=== PATIENT | male | born 1970 | race Caucasian/White ===

== ENCOUNTER 2017-06-19 17:36 | Emergency (ER) | payer SELFPAY ==
[~2017-06-19] VITALS: Ht 185.4 cm; Wt 100.0 kg
[~2017-06-19 17:36] MED LIST: CEPHALEXIN500 M PO; SMZ-TMP DS TABL1 TAB PO
[2017-06-19] MEDS ORDERED: PENICILLIN V P500 M1 PO (18:43)
== END 2017-06-19 18:48 ==
LOC: EDMED 17:36
DX: K02.9 Dental caries, unspecified (principal); Z87.891 Personal history of nicotine dependence